=== PATIENT | female | born 1970 | race Native Hawaiian/Other Pacific Islander ===

== ENCOUNTER 2016-12-24 12:57 | Outpatient (CLI) | payer OTHER ==
[2016-12-24 14:10] LABS: PLATELET COUNT 333 K/uL (152-353)
[2016-12-24 15:30] LABS: POTASSIUM 3.9 mmol/L (3.6-5.2); SODIUM 136 mmol/L (136-145)
== END 2016-12-24 14:00 | disposition home or self-care (01) ==
LOC: LAB 12:57
PROVIDERS: Family Medicine
DX: E11.9 Type 2 diabetes mellitus without complications (principal); I10 Essential (primary) hypertension; E78.4 Other hyperlipidemia; J32.9 Chronic sinusitis, unspecified; K21.9 Gastro-esophageal reflux disease without esophagitis; E55.9 Vitamin D deficiency, unspecified
CPT/HCPCS: 80053; 80061; 81000; 82043; 82306; 82570; 83036; 83735; 84439; 84443; 84550; 85027